=== PATIENT | female | born 1940 | race Hispanic/Latino ===

== ENCOUNTER 2017-01-10 08:56 | Outpatient (CLI) | payer MEDICARE ==
--- NOTE | 2017-01-14 18:46 | Magnetic Resonance Report ---
MR scan of the cranium was performed without contrast. Pulse sequences included: 1. T1 weighted sagittal and axial images without contrast 2. T2 weighted axial and coronal images 3. FLAIR axial images 4. Diffusion-weighted axial images 5. Apparent diffusion coefficient images Views of the posterior fossa showed a normal craniocervical junction. Cerebellar pontine angles were normal with normal seventh-eighth nerve complexes. Brainstem and cerebellum were normal. The ventricular system showed mild to moderate dilatation but no distortion. Images of the hemispheres showed enlarged Sylvian fissures and biparietal atrophy. Moderate white matter changes consistent with araiosis was present. Hippocampal regions were normal. A cyst was seen in the left subinsular region possibly representing an old infarct. Some white matter changes extended to the cortex in the biparietal regions raising the question of infarcts. Flow voids in the [place], orbits, pituitary and basal ganglia were normal. Increased signal was forrest in the left mastoid consistent with left mastoid sinusitis Impression: Abnormal MR scan of the cranium without contrast 1. atrophy, araiosis and hydrocephalus 2. 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 left mastoid sinusitis
== END 2017-01-10 08:57 | disposition home or self-care (01) ==
LOC: SPVIMAG 08:56
PROVIDERS: ATTEND Specialist
DX: G91.9 Hydrocephalus, unspecified (principal); G31.89 Other specified degenerative diseases of nervous system; J32.8 Other chronic sinusitis; R41.1 Anterograde amnesia
CPT/HCPCS: 70551

== ENCOUNTER 2017-04-17 12:32 | Emergency (ER) | payer MEDICARE ==
--- NOTE | 2017-04-17 14:22 | Cat Scan Report ---
FINAL REPORT EXAM: CT HEAD/BRAIN WO CON HISTORY: Fall, on coumadin TECHNIQUE: CT examination of the head without IV contrast PRIORS: None. FINDINGS: No acute air-fluid level visualized in the included air-filled sinuses. Bone windows demonstrate no acute fracture. There is ventricular and sulcal prominence compatible with global cerebrocortical atrophy. Low attenuation regions in the cerebral white matter, while nonspecific, are present and usually attributed to chronic ischemic gliosis. It can occur secondary to the normal aging process, hypertension, or arterial sclerotic vascular disease. The differential includes demyelination in the appropriate clinical setting. The brain contains no mass, mass effect, hemorrhage, or acute infarct. There is no extra-axial intracranial bleed or brain bleed. There is no midline shift. IMPRESSION: No acute CVA, intracranial bleed, or brain mass
[2017-04-17 15:50] LABS: INR 1.96 (0.87-1.13)
[2017-04-17] MEDS ORDERED: NACL 0.9% 1000 ML 1,000 ML IV ONE (16:14)
--- NOTE | 2017-04-17 16:16 | Emergency Department Report ---
Blank Doc - Documentation Documentation: Patient is a 76-year-old female who is presenting status post syncopal episode. Patient's is on Coumadin for atrial fibrillation. states she has a lot of life stressors which may contribute to the syncopal episode. Patient denies any chest pain shortness of breath and states she " just went out" patient's INR is right at the level of therapeutic at 1.[address] does not show any acute process however patient did mention that she is having some slight dizziness when standing therefore over to give the patient's IV fluids and check chemistries and CBC as well
[2017-04-17 16:36] LABS: Basophils % (Auto) 0.5 % (0.0-1.8); Eosinophils % (Auto) 0.4 % (0.0-4.3); Hemoglobin 14.3 gm/dl (10.1-14.3); Lymphocytes # (Auto) 0.5 K/mm3 (1.2-5.4); Lymphocytes % (Auto) 7.4 % (13.4-35.0); Mean Corpuscular HGB Conc 33 % (30-34); Mean Corpuscular Hemoglobin 33 pg (28-32); Mean Corpuscular Volume 99 fl (79-97); Monocytes # (Auto) 0.4 K/mm3 (0.0-0.8); Monocytes % (Auto) 5.6 % (0.0-7.3); Platelet Count 239 K/mm3 (140-440); Red Blood Count 4.34 M/mm3 (3.65-5.03); Red Cell Distribution Width 16.2 % (13.2-15.2)
--- NOTE | 2017-04-17 16:43 | Emergency Department Report ---
ED Fall HPI - General Chief Complaint: Fall Stated Complaint: SYNCOPE Time Seen by Provider: 04/17/17 16:09 Source: patient, family Mode of arrival: Ambulatory - History of Present Illness Initial Comments: Patient is a 76-year-old female who is presenting status post syncopal episode. Patient's is on Coumadin for atrial fibrillation. states she has a lot of life stressors which may contribute to the syncopal episode. Patient denies any chest pain shortness of breath and states she " just went out" patient hit her back off head. She reported that she has a small bruise to the back of her head.. Denies any overt bleeding. Patient is on Coumadin at 2.5 mg daily for atrial fibrillation. She sees Dr. 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 She says she gets her INR checked frequently and is usually stable. Denies any nausea or vomiting. Denies any dizziness or blurred vision. Denies any cuts or bruises to any parts of her body. Headache localized to occipital scalp where hematoma is located. 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 denies: neck pain, numbness, weakness, shortness of breath, abdominal pain, hematuria, unable to walk, lightheaded, vertigo, confusion, other - Related Data Home Medications Medication Instructions Recorded Confirmed Last Taken Alendronate Sodium 35 mg PO QWEEK 02/11/14 03/16/14 03/16/14 Atorvastatin [Lipitor] 20 mg PO QHS 02/11/14 03/16/14 03/15/14 Azithromycin [Zithromax Z-GENE] 250 mg PO DAILY 02/11/14 03/16/14 03/16/14 Diltiazem Cd [Cardizem CD] 180 mg PO QDAY 02/11/14 03/16/14 03/16/14 Levothyroxine [Synthroid] 50 mcg PO QAM 02/11/14 03/16/14 03/16/14 Methotrexate(Dose Weekly Only) 10 mg PO QWEEK 02/11/14 03/16/14 03/15/14 Prednisone [predniSONE (Dannie) ER 5 mg PO QDAY 02/11/14 03/16/14 03/16/14 TAB] Previous Rx's Medication Instructions Recorded Last Taken Type Warfarin [Coumadin] 5 mg PO DAILY@1700 30 Days tablet 02/14/14 03/16/14 Rx Allergies Allergy/AdvReac Type Severity Reaction Status Date / Time No Known Allergies Allergy Verified 02/11/14 16:09 ED Review of Systems ROS: Stated complaint: SYNCOPE Other details as noted in HPI Comment: All other systems reviewed and negative Constitutional: no symptoms reported Eyes: denies: eye pain, vision change ENT: denies: ear pain, throat pain, congestion Respiratory: no symptoms reported Cardiovascular: denies: chest pain, palpitations, dyspnea on exertion, paroxysmal nocturnal dyspnea Gastrointestinal: denies: abdominal pain, nausea, vomiting Genitourinary: denies: urgency, dysuria, frequency, hematuria, discharge Musculoskeletal: denies: back pain, joint swelling, arthralgia, myalgia Skin: other (bruising head). denies: rash Neurological: headache. denies: numbness, paresthesias, confusion, abnormal gait, vertigo ED Past Medical Hx - Past Medical History Previous Medical History?: Yes Hx Hypertension: Yes Hx CVA: Yes Hx Arthritis: Yes (RA) Hx Asthma: Yes Additional medical history: high cholesterol, hypothyroid, rheumatoid arthritis. - Surgical History Past Surgical History?: Yes Additional Surgical History: multiple hand surgeries - Family History Family history: hypertension - Social History Smoking Status: Never Smoker Substance Use Type: None - Medications Home Medications: Home Medications Medication Instructions Recorded Confirmed Last Taken Type Alendronate Sodium 35 mg PO QWEEK 02/11/14 03/16/14 03/16/14 History Atorvastatin [Lipitor] 20 mg PO QHS 02/11/14 03/16/14 03/15/14 History Azithromycin [Zithromax Z-GENE] 250 mg PO DAILY 02/11/14 03/16/14 03/16/14 History Diltiazem Cd [Cardizem CD] 180 mg PO QDAY 02/11/14 03/16/14 03/16/14 History Levothyroxine [Synthroid] 50 mcg PO QAM 02/11/14 03/16/1403/16/15 History Methotrexate(Dose Weekly Only) 10 mg PO QWEEK 02/11/14 03/16/14 03/15/14 History Prednisone [predniSONE (Dannie) ER 5 mg PO QDAY 02/11/14 03/16/14 03/16/14 History TAB] Warfarin [Coumadin] 5 mg PO DAILY@1700 30 Days tablet 02/14/14 03/16/14 Rx ED Physical Exam - General Limitations: No Limitations General appearance: alert, in no apparent distress - Head Head exam: Present: atraumatic, normocephalic, normal inspection - Expanded Head Exam Expanded Head exam: Present: hematoma (occipital scalp). Absent: laceration, abrasion, contusion, racoon eyes, johnson's sign, general tenderness, tenderness of temporal artery, CSF rhinorrhea, CSF otorrhea - Eye Eye exam: Present: normal appearance, PERRL, EOMI. Absent: scleral icterus, conjunctival injection, nystagmus, periorbital swelling, periorbital tenderness Pupils: Present: normal accommodation - ENT ENT exam: Present: normal exam, normal orophraynx, mucous membranes moist, TM's normal bilaterally, normal external ear exam - Neck Neck exam: Present: normal inspection, full ROM, other (no c-spine tenderness). Absent: tenderness, meningismus, lymphadenopathy, thyromegaly - Expanded Neck Exam Expanded Neck exam: Absent: tenderness, midline deformity, anterior neck swelling, thyroid mass, carotid bruit, tracheal deviation - Respiratory Respiratory exam: Present: normal lung sounds bilaterally. Absent: respiratory distress, chest wall tenderness, accessory muscle use - Cardiovascular Cardiovascular Exam: Present: regular rate, irregular rhythm. Absent: systolic murmur, diastolic murmur - GI/Abdominal GI/Abdominal exam: Present: soft, normal bowel sounds. Absent: distended, tenderness, guarding, rebound, rigid, organomegaly, mass, bruit, pulsatile mass , hernia - Extremities Exam Extremities exam: Present: normal inspection, full ROM, normal capillary refill , other (No cce, +m 2 pulses. No bruising, Laceration, contusions ti extremities. no bony abnormalities.). Absent: tenderness, pedal edema, joint swelling, calf tenderness - Back Exam Back exam: Present: normal inspection, full ROM, other (ambulates without difficulties). Absent: tenderness, CVA tenderness (R), CVA tenderness (L), muscle spasm, paraspinal tenderness, vertebral tenderness, rash noted - Expanded Back Exam Expanded Back exam: Absent: saddle anesthesia Back exam: Negative Straight Leg Raising: Left, Right - Neurological Exam Neurological exam: Present: alert, oriented X3, normal gait, reflexes normal. Absent: motor sensory deficit - Expanded Neurological Exam Expanded Neurological exam: Absent: innattentive, memory loss-remote event, memory loss- recent event, ataxia, receptive aphasia, expressive aphasia, total aphasia Patient oriented to: Present: place Speech: Present: fluid speech Cranial nerves: EOM's Intact: Normal, Gag Reflex: Normal, Tongue Deviation: Normal, Nystagmus: Normal, Facial Sensation: Normal Cerebellar function: Romberg: Normal Upper motor neuron: Pronator Drift: Normal, Sensory Extinction: Normal Sensory exam: Upper Extremity Light Touch: Normal, Upper Extremity Temperature: Normal, UE 2 Point Discrimination: Normal, Lower Extremity Light Touch: Normal, Lower Extremity Pin Prick: Normal, LE 2 Point Discrimination: Normal Motor strength exam: RUE: 5, LUE: 5, RLE: 5, LLE: 5 DTR: bicep (R): 2+, bicep (L): 2+, tricep (R): 2+, tricep (L): 2+, knee (R): 2+ , knee (L): 2+, ankle (R): 2+, ankle (L): 2+ Best Eye Response (Garret): (4) open spontaneously Best Motor Response (Garret): (6) obeys commands Best Verbal Response (Andrews): (5) oriented Andrews Total: 15 - Psychiatric Psychiatric exam: Present: normal affect, normal mood - Skin Skin exam: Present: warm, dry, intact, normal color, other (contusion to occipital scalp). Absent: rash - Expanded Skin Exam Expanded Distribution of rash: head (occipital scalp) Description of rash: Present: tenderness, erythematous, swelling, other ED Course Vital Signs 04/17/17 04/17/17 13:16 18:00 Temperature 97.6 F Pulse Rate 92 H Pulse Rate [ 74 Lying] Pulse Rate [ 76 Sitting] Pulse Rate [ 77 Standing] Respiratory 16 Rate Blood Pressure 136/80 Blood Pressure 112/61 [Lying] Blood Pressure 117/62 [Sitting] Blood Pressure 118/66 [Standing] O2 Sat by Pulse 100 Oximetry ED Medical Decision Making - Lab Data Result diagrams: 04/17/17 16:19 04/17/17 16:19 Critical care attestation.: If time is entered above; I have spent that time in minutes in the direct care of this critically ill patient, excluding procedure time. ED Disposition Clinical Impression: Chronic a-fib Syncope Qualifiers: Syncope type: unspecified Qualified Code(s): R55 - Syncope and collapse Scalp hematoma Qualifiers: Encounter type: initial encounter Qualified Code(s): S00.03XA - Contusion of scalp, initial encounter Closed head injury without concussion Qualifiers: Encounter type: initial encounter Qualified Code(s): S09.90XA - Unspecified injury of head, initial encounter Disposition: - TO HOME OR SELFCARE Is pt being admited?: No Does the pt Need Aspirin: No Condition: Stable Instructions: Syncope (ED), Contusion in Adults (ED), Minor Head Injury (ED) Additional Instructions: Follow up with your PCP in the morning for evaluation s/p fall with closed head injury Follow up with [facility] to check INR todays's level was 1.98. See discharge instruction on closed head injury and if you develop any symptoms return to hospital [facility] Referrals: JESUS LLOYD MD [Primary Care Provider] - 04/18/17 Forms: Accompanied Note
[2017-04-17 16:51] LABS: BUN/Creatinine Ratio 16; Blood Urea Nitrogen 13 mg/dL (7-17); Calcium 9.7 mg/dL (8.4-10.2); Hemolysis Index 61
[2017-04-17 19:46] VITALS: BP 116/72
== END 2017-04-17 19:44 | disposition home or self-care (01) ==
LOC: ED 12:32
DX: I48.91 Unspecified atrial fibrillation (principal); R55 Syncope and collapse; I10 Essential (primary) hypertension; J45.909 Unspecified asthma, uncomplicated; M06.9 Rheumatoid arthritis, unspecified; Z79.01 Long term (current) use of anticoagulants
CPT/HCPCS: 36415; 70450; 80048; 84484; 85025; 85610; 93005; 93010; 99284; J7030

== ENCOUNTER 2018-08-15 08:32 | Emergency (ER) | payer MEDICARE ==
[2018-08-15] MEDS ORDERED: IBUPROFEN PO ONE (09:43)
--- NOTE | 2018-08-15 09:43 | Emergency Department Report ---
ED Lower Extremity HPI - General Chief Complaint: Extremity Injury, Lower Stated Complaint: R KNEE PAIN Time Seen by Provider: 08/15/18 09:41 Source: patient Mode of arrival: Wheelchair Limitations: No Limitations - History of Present Illness Initial Comments: Patient is a pleasant 77-year-old female who comes to the ER today with right knee pain. Patient states that she fell approximately 3 weeks ago and has been having mild pain at the knee. This was a mechanical fall, she tripped over dog; it was witnessed. However, yesterday it started to worsen and she is having difficulty ambulating. Patient is a frail 77-year-old but according to her is in her usual state of health. She does have underlying dementia and is somewhat of a poor informant. She has not fallen since this episode and she does not have frequent falls. She follows with Dr. Lloyd in [place] [employer]. Pt is ambulatory on admit. She denies home meds- but I suspect she is to be taking meds. Pt and family poor informant. Complaint: knee injury -: Sudden, week(s) Injury: Knee: Right Type of Injury: blunt Place: home Improves With: nothing Worsens With: movement Context: fall - Related Data Previous Rx's Medication Instructions Recorded Last Taken Type dilTIAZem CD [Cardizem CD] 120 mg PO QDAY #30 capsule 11/09/17 Unknown Rx Ibuprofen [Motrin] 400 mg PO Q8H PRN #20 tablet 08/15/18 Unknown Rx Allergies Allergy/AdvReac Type Severity Reaction Status Date / Time No Known Allergies Allergy Verified 08/15/18 08:46 ED Review of Systems ROS: Stated complaint: R KNEE PAIN Other details as noted in HPI Comment: All other systems reviewed and negative ED Past Medical Hx - Past Medical History Hx Hypertension: Yes Hx CVA: Yes Hx Congestive Heart Failure: No Hx Diabetes: No Hx Arthritis: Yes (RA) Hx Asthma: Yes Hx COPD: No Additional medical history: high cholesterol, hypothyroid - Surgical History Additional Surgical History: multiple hand surgeries - Family History Family history: no significant - Social History Smoking Status: Never Smoker Substance Use Type: None - Medications Home Medications: Home Medications Medication Instructions Recorded Confirmed Last Taken Type dilTIAZem CD [Cardizem CD] 120 mg PO QDAY #30 capsule 11/09/17 Unknown Rx Ibuprofen [Motrin] 400 mg PO Q8H PRN #20 tablet 08/15/18 Unknown Rx ED Physical Exam - General Limitations: No Limitations General appearance: alert, other (REMEMBERED BY NAME FROM ONE EXAM TO THE NEXT) - Eye Eye exam: Present: PERRL - ENT ENT exam: Present: mucous membranes moist - Neck Neck exam: Present: normal inspection - Respiratory Respiratory exam: Present: normal lung sounds bilaterally - Cardiovascular Cardiovascular Exam: Present: regular rate (90 ON PROVIDER EXAM ) - GI/Abdominal GI/Abdominal exam: Present: soft - Back Exam Back exam: Present: normal inspection - Neurological Exam Neurological exam: Present: alert, oriented X3, normal gait - Psychiatric Psychiatric exam: Present: normal affect, normal mood - Skin Skin exam: Present: warm, dry, intact ED Course Vital Signs 08/15/18 08/15/18 08/15/18 08:49 09:52 11:45 Temperature 97.7 F Pulse Rate 110 H 95 H Respiratory 17 16 18 Rate Blood Pressure 118/71 Blood Pressure 115/70 [Left] O2 Sat by Pulse 100 98 Oximetry ED Lower Extremity MDM - Radiology Data Radiology results: report reviewed, image reviewed - Medical Decision Making Vital Signs 08/15/18 08/15/18 08/15/18 08:49 09:52 11:45 Temperature 97.7 F Pulse Rate 110 H 95 H Respiratory 17 16 18 Rate Blood Pressure 118/71 Blood Pressure 115/70 [Left] O2 Sat by Pulse 100 98 Oximetry xray noted nap medicated for pain with relief. ambulatory in ER. Will dc home with pcp follow up. She is going home with her . - Differential Diagnosis RO EFFUSION Critical care attestation.: If time is entered above; I have spent that time in minutes in the direct care of this critically ill patient, excluding procedure time. ED Disposition Clinical Impression: Dementia, Knee pain, DJD (degenerative joint disease) Disposition: DC-01 TO HOME OR SELFCARE Is pt being admited?: No Does the pt Need Aspirin: No Condition: Stable Instructions: Arthralgia (ED) Additional Instructions: DIET TOLERATED MEDS ORDERED TODAY IN ER FOLLOW INSTRUCTIONS ON THE BOTTLE FOLLOW UP PCP WITHIN 48 HOURS TO ENSURE YOU ARE GETTING BETTER AND TO EVALUATE YOUR ONGOING HEALTH AND MEDICAL CARE. ACTIVITY TOLERATED MOTRIN OR TYLENOL FOR PAIN BE SURE TO TAKE THESE WITH FOOD RETURN TO THE ER FOR WORSENING SYMPTOMS NOT RELIEVED BY YOUR MEDICATIONS. Prescriptions: Ibuprofen [Motrin] 400 mg PO Q8H PRN #20 tablet PRN Reason: Pain , Severe (7-10) Referrals: [facility] [Outside] - 3-5 Days SHYAM MOSHER MD [Staff Physician] - 3-5 Days JESUS LLOYD MD [Referring] - 3-5 Days Time of Disposition: 09:42
--- NOTE | 2018-08-15 11:16 | XRay Report ---
RIGHT KNEE RADIOGRAPHS INDICATION: Pain, status post fall. COMPARISON: None similar. FINDINGS: AP, lateral and oblique right knee radiographs may demonstrate degenerative prominence of medial projecting tibial spine. Slight medial compartment narrowing also not excluded. Slight superior patellar pole spurring. Overall intact articulation. No definite suprapatellar effusion. Osteopenia. Atherosclerotic vascular calcifications noted posteriorly. CONCLUSION: No acute right knee bony abnormality with few degenerative changes, as above. Please correlate. Thank you for the opportunity to participate in this patient's care.
[2018-08-15 11:46] VITALS: BP 115/70
== END 2018-08-15 11:46 | disposition home or self-care (01) ==
LOC: ED 08:32
DX: M19.90 Unspecified osteoarthritis, unspecified site (principal); F03.90 Unspecified dementia, unspecified severity, without behavioral disturbance, psychotic disturbance, mood disturbance, and anxiety; I10 Essential (primary) hypertension; J45.909 Unspecified asthma, uncomplicated; E78.5 Hyperlipidemia, unspecified; E03.9 Hypothyroidism, unspecified

== ENCOUNTER 2019-03-16 12:42 | Emergency (ER) | payer MEDICARE ==
--- NOTE | 2019-03-16 13:07 | Emergency Department Report ---
Blank Doc - Documentation Documentation: 78-year-old female that presents with fall from a wheelchair with pain to right hip and lower back pains. Denies any head injuries or neck pains. Denies any other complaints. This initial assessment/diagnostic orders/clinical plan/treatment(s) is/are subject to change based on patient's health status, clinical progression and re- assessment by fellow clinical providers in the ED. Further treatment and workup at subsequent clinical providers discretion. Patient/guardians urged not to elope from the ED as their condition may be serious if not clinically assessed and managed. Initial orders include: 1- Patient sent to [facility] for further evaluation and treatment 2- xrays
[2019-03-16 13:08] VITALS: BP 104/74
--- NOTE | 2019-03-16 14:12 | XRay Report ---
RIGHT HIP 2 VIEWS INDICATION: pain s/p fall. COMPARISON: None. IMPRESSION: Osteopenia is evident. A mildly displaced right femoral neck fracture is identified. Th e right femoral head remains well-seated within the right acetabulum. No pelvic fracture is appreciat ed. Signer Name: Bharat Mac Jr, MD Signed: 03/16/2019 2:07 PM Workstation Name: [id number]
--- NOTE | 2019-03-16 14:14 | XRay Report ---
LUMBOSACRAL SPINE, 3 VIEWS INDICATION: pain s/p fall. COMPARISON: None. IMPRESSION: Osteopenia is evident. Severe levocurvature of the lumbar spine is identified with apex near the L3 level. Curvature is estimated at 30 degrees. There is moderate to severe multilevel dege nerative disc disease and facet arthropathy. L1-2, L2-3 and L3-4 the most affected levels. Diffuse hy pertrophic facet arthropathy is also evident. No acute osseous injury or bony lesion is identified. Signer Name: Bharat Mac Jr, MD Signed: 03/16/2019 2:09 PM Workstation Name: [id number]
--- NOTE | 2019-03-16 14:20 | Emergency Department Report ---
ED General Adult HPI - General Chief complaint: Fall Stated complaint: FALL INJURY/RT HIP/BACK PAIN Time Seen by Provider: 03/16/19 13:06 Source: patient Mode of arrival: Wheelchair Limitations: No Limitations - History of Present Illness Initial comments: 78 y.o. female with a history of osteoarthritis, asthma, CVA and hypercholesteremia presents with the complaint of a fall. Patient states she fell on Saturday. 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 Patient tried to unlock the door at her home and fell in the Saturday afternoon. Patient refused EMS transport. Patient is taking no pain medication since Saturday but states the pain worsened today and thus her son brought her to the emergency department. Patient fell from her wheelchair and complains of pain to the right hip and lower back. Patient denies any chest pain, shortness of breath or abdominal pain prior to fall. - Related Data Previous Rx's Medication Instructions Recorded Last Taken Type dilTIAZem CD [Cardizem CD] 120 mg PO QDAY #30 capsule 11/09/17 Unknown Rx Ibuprofen [Motrin] 400 mg PO Q8H PRN #20 tablet 08/15/18 Unknown Rx Oxycodone HCl/Acetaminophen 1 each PO Q6HR PRN #20 tablet 03/16/19 Unknown Rx [Percocet 7.5/325 mg] Allergies Allergy/AdvReac Type Severity Reaction Status Date / Time No Known Allergies Allergy Verified 08/15/18 08:46 ED Review of Systems ROS: Stated complaint: FALL INJURY/RT HIP/BACK PAIN Other details as noted in HPI Constitutional: denies: chills, fever Eyes: denies: eye pain, eye discharge, vision change ENT: denies: ear pain, throat pain Respiratory: denies: cough, shortness of breath, wheezing Cardiovascular: denies: chest pain, palpitations Endocrine: no symptoms reported Gastrointestinal: denies: abdominal pain, nausea, diarrhea Genitourinary: denies: urgency, dysuria, discharge Musculoskeletal: back pain, other (Knee pain) Skin: denies: rash, lesions Neurological: denies: headache, weakness, paresthesias Psychiatric: denies: anxiety, depression Hematological/Lymphatic: denies: easy bleeding, easy bruising ED Past Medical Hx - Past Medical History Previous Medical History?: Yes Hx Hypertension: Yes Hx CVA: Yes Hx Congestive Heart Failure: No Hx Diabetes: No Hx Arthritis: Yes (RA) Hx Asthma: Yes Hx COPD: No Additional medical history: high cholesterol, hypothyroid - Surgical History Past Surgical History?: Yes Additional Surgical History: multiple hand surgeries - Social History Smoking Status: Never Smoker Substance Use Type: None - Medications Home Medications: Home Medications Medication Instructions Recorded Confirmed Last Taken Type dilTIAZem CD [Cardizem CD] 120 mg PO QDAY #30 capsule 11/09/17 Unknown Rx Ibuprofen [Motrin] 400 mg PO Q8H PRN #20 tablet 08/15/18 Unknown Rx Oxycodone HCl/Acetaminophen 1 each PO Q6HR PRN #20 tablet 03/16/19 Unknown Rx [Percocet 7.5/325 mg] ED Physical Exam - General Limitations: No Limitations General appearance: alert, other (uncomfortable; ) - Head Head exam: Present: atraumatic, normocephalic - Eye Eye exam: Present: normal appearance - ENT ENT exam: Present: mucous membranes dry - Neck Neck exam: Present: normal inspection - Respiratory Respiratory exam: Present: normal lung sounds bilaterally. Absent: respiratory distress - Cardiovascular Cardiovascular Exam: Present: regular rate, normal rhythm. Absent: systolic murmur, diastolic murmur, rubs, gallop - GI/Abdominal GI/Abdominal exam: Present: soft, normal bowel sounds - Extremities Exam Extremities exam: Present: other (no evidence of ecchymosis in right hip region; pain to palpation of right hip; 2+ femoral pulses noted; Right BKA noted) - Back Exam Back exam: Present: normal inspection, other (tenderness noted in L4 and L5 region) - Neurological Exam Neurological exam: Present: alert, oriented X3 - Psychiatric Psychiatric exam: Present: normal affect, normal mood - Skin Skin exam: Present: warm, dry, intact, normal color. Absent: rash ED Course Vital Signs 03/16/19 13:07 Temperature 97.4 F L Pulse Rate 89 Respiratory 18 Rate Blood Pressure 104/74 O2 Sat by Pulse 98 Oximetry ED Medical Decision Making - Lab Data Result diagrams: 03/16/19 14:46 - Medical Decision Making Patient received percocet therapy while in the Emergency Department. Dr. Che with orthopedics consulted. He states that since patient is baseline in wheelchair and an amputee that patient can follow up in clinic and does not need acute surgical intervention. Patient family made aware and patient to receive Percocet therapy as an outpatient. - Differential Diagnosis Fracture; Dislocation; Dehydration Critical care attestation.: If time is entered above; I have spent that time in minutes in the direct care of this critically ill patient, excluding procedure time. ED Disposition Clinical Impression: Femoral neck fracture, Fall Disposition: TO HOME OR SELFCARE Is pt being admited?: No Condition: Stable Instructions: Pelvic Fracture (ED) Prescriptions: Oxycodone HCl/Acetaminophen [Percocet 7.5/325 mg] 1 each PO Q6HR PRN #20 tablet PRN Reason: Pain Referrals: SHYAM CHE MD [Staff Physician] - 3-5 Days
[2019-03-16] MEDS ORDERED: oxyCODONE /ACETAMINOPHEN 5-325MG TAB PO ONE (14:34)
[2019-03-16 15:03] LABS: Hematocrit 36.4 % (30.3-42.9); Hemoglobin 12.4 gm/dl (10.1-14.3); Mean Corpuscular HGB Conc 34 % (30-34); Mean Corpuscular Volume 93 fl (79-97); Platelet Count 192 K/mm3 (140-440); Red Blood Count 3.93 M/mm3 (3.65-5.03); Red Cell Distribution Width 17.1 % (13.2-15.2)
[2019-03-16 15:15] LABS: INR 0.97 (0.87-1.13)
[2019-03-16 15:16] LABS: Partial Thromboplastin Time 26.5 Sec. (24.2-36.6)
[2019-03-16 15:26] LABS: Alanine Aminotransferase 15 units/L (7-56); Albumin 3.3 g/dL (3.9-5); BUN/Creatinine Ratio 15; Blood Urea Nitrogen 12 mg/dL (7-17); Calcium 9.3 mg/dL (8.4-10.2); Hemolysis Index 10
== END 2019-03-16 15:00 | disposition home or self-care (01) ==
LOC: ED 12:42
DX: S72.091A Other fracture of head and neck of right femur, initial encounter for closed fracture (principal); M54.5 Low back pain; I10 Essential (primary) hypertension; M19.90 Unspecified osteoarthritis, unspecified site; J45.909 Unspecified asthma, uncomplicated; E78.00 Pure hypercholesterolemia, unspecified; Z86.73 Personal history of transient ischemic attack (TIA), and cerebral infarction without residual deficits; Z79.899 Other long term (current) drug therapy; W05.0XXA Fall from non-moving wheelchair, initial encounter; Y93.89 Activity, other specified; Y92.89 Other specified places as the place of occurrence of the external cause; Y99.8 Other external cause status
CPT/HCPCS: 36415; 72100; 80053; 85027; 85610; 85730; 86850; 86900; 86901